=== PATIENT | female | born 1955 | race Caucasian/White ===

== ENCOUNTER → 2020-04-12 13:04 | Outpatient (BNVA) | payer OTHER, SELFPAY | PROVIDERS: Visit Provider Specialist | DX: G25.0 Essential tremor (principal); G24.3 Spasmodic torticollis; Z87.891 Personal history of nicotine dependence | CPT/HCPCS: 99203 ==

== ENCOUNTER 2022-01-07 10:35 | Emergency (ER) | payer OTHER, MEDICARE, SELFPAY ==
[2022-01-07 11:09] VITALS: BP 144/89; PULSE 75; RESP 16; TEMP 36.6; O2SAT 98; BMI 47.0
--- NOTE | 2022-01-07 11:28 | XR_ITS ---
WS: [id number] LEFT FOOT: 3 VIEW(S) TECHNIQUE: AP, oblique and lateral. HISTORY: pain and swelling of midfoot-Great toe MP Joint COMPARISON: None available. No acute fracture or dislocation. Very minimal joint space narrowing involving the first metatarsopha langeal joint. No erosions. No soft tissue mass. Normal tarsal/metatarsal alignment. Large calcaneal spur measures 15 mm. XR/XR foot LT min 3V* [id number] IMPRESSION: 1. Minimal degenerative changes at the first metatarsophalangeal joint. 2. No erosions. 3. Large calcaneal spur.
--- NOTE | 2022-01-07 11:32 | ED_ITS ---
HPI - Extremity Problem General: Chief complaint: Extremity Problem,Nontraumatic Stated complaint: Left foot pain Time Seen by Provider: 01/07/22 11:19 History of Present Illness: Patient is a 66-year-old female who comes to the ED with left foot pain. Symptoms started approximately 2 days ago. She describes having some pain, swelling and redness at the base of her great toe of left foot. Pain is rated a 10 out of 10. Denies any injury or trauma to cause pain. She states that the foot is very sensitive to touch and she had to sleep with her leg outside of the sheets because even the javan of the sheet on her bed was painful. Denies any past history of gout or any past similar pain in foot. Associated symptoms: Deny chest pain, fever(s) or rash Review of Systems Const: Denies: fever(s), chills or fatigue Eyes: Denies: change in vision or eye discomfort ENMT: Denies: throat pain, odynophagia, nasal discharge or nasal congestion Card: Denies: chest pain, palpitations, edema, swelling of feet/ankles, dyspnea on exertion or orthopnea Resp: Denies: dyspnea, productive cough or non-productive cough GI: Denies: abdominal pain, nausea, vomiting, diarrhea, constipation or hematochezia : Denies: flank pain, dysuria or hematuria Musc: Reports: extremity pain (left foot-base of great toe), extremity swelling (left foot-base of great toe) and joint redness (Left foot-great toe metatarsal phalangeal joint); Denies: neck pain or back pain Skin/Breast: Denies: rash or new lesions Neuro: Denies: headache(s) PFSH ED PFSH: Surgical History No pertinent past surgical history Family History Father Dementia Denies family history of Diabetes Bleeding disorder Cancer Social History Smoking and tobacco status: former smoker Physical Exam Const: COMMON NORMALS: no acute distress, patient oriented x3 and alert GENERAL APPEARANCE: cooperative and comfortable NUTRITIONAL APPEARANCE: obese HENMT: COMMON NORMALS: normocephalic HEAD & SCALP: normocephalic MOUTH: Normal oral and palatal mucosa present THROAT: posterior oropharynx normal and uvula midline Neck/C-Spine: COMMON NORMALS: supple GENERAL: Yes normal visual inspection Resp: COMMON NORMALS: normal respiratory effort, No retractions, No use of accessory muscles and clear to auscultation bilaterally AUSCULTATION: clear to auscultation bilaterally Cardio: COMMON NORMALS: regular rate, regular rhythm, S1 normal heart sound present, S2 normal heart sound present, No gallops present (Cardio), No clicks present (Cardio), No murmurs present (Cardio) and Peripheral pulses 2+ throughout RATE: regular rate RHYTHM: regular rhythm HEART SOUNDS: S1 normal heart sound present and S2 normal heart sound present PERIPHERAL PU LSES: Peripheral pulses 2+ throughout GI: COMMON NORMALS: Normal to inspection, nondistended, normoactive bowel sounds present, Soft to palpation, non-tender and no masses PALPATION: Yes Soft to palpation : COMMON NORMALS: Yes no CVA tenderness BLADDER/KIDNEY EXAM: Yes no CVA tenderness Back/Pelvis: COMMON NORMALS: no CVA tenderness Extremity: LEFT LOWER EXTREMITY: Yes foot & digits Left foot and digits: Yes inspection (Swelling and erythema at first meta tarsal/phalangeal joint), Yes palpation (Tenderness over first metatarsal/phalangeal joint), Yes ROM (Great toe limited due to pain.) and Yes neurovascular exam (Intact.) Neuro: COMMON NORMALS: patient oriented x3 and moves all extremities SENSORIUM/ORIENTATION: Yes alert Skin: GENERAL SKIN EXAM: dry skin Course Vital Signs: Vital signs: Vital Signs Temperature 97.9 F 01/07/22 11:09 Pulse Rate 74 01/07/22 13:20 Respiratory Rate 16 01/07/22 13:20 Blood Pressure 144/89 01/07/22 11:09 Pulse Oximetry 95 01/07/22 13:20 MDM - Extremity (Nontraumatic) Medical Decision Making Patient is a 66-year-old female who comes to the ED with left foot pain. Patient has erythema, warmth and swelling of the metatarsal?phalangeal joint of the great toe on left foot. Denies any injury or trauma. Symptoms started approximately 2 days ago. X-ray of left foot shows minimal degenerative changes at the first metatarsophalangeal joint. Given patient's history and clinical appearance she is diagnosed with gout and given a dose of colchicine here in the ED. She was then discharged home with a prescription for second dose of colchicine, prednisone and hydrocodone for acute pain. Return to ED precautions given. Follow-up with PCP in 5 to 7 days for reevaluation. Patient understood and agree with plan. Lab Data Radiology Impressions Foot X-Ray 01/07/22 11:28 IMPRESSION: 1. Minimal degenerative changes at the first metatarsophalangeal joint. 2. No erosions. 3. Large calcaneal spur. Discharge Plan Discharge Patient Disposition: Home Clinical Impression: Gout Qualifiers: Gout site: toe Gout etiology: idiopathic Chronicity: acute Laterality: left Qualified Code(s): M10.072 - Idiopathic gout, left ankle and foot Condition: Stable Prescriptions: New prednisone 20 mg tablet 20 mg PO BID 7 Days Qty: 14 0RF colchicine 0.6 mg capsule 0.6 mg PO ONCE Qty: 1 0RF Rx Instructions: Take next dose approximately 1 hour after your initial dose given in the ED. No Action albuterol sulfate 90 mcg/actuation aerosol powdr breath activated 2 inh INHALATION Q6H PRN0RF aspirin [Adult Low Dose Aspirin] 81 mg tablet,delayed release (DR/EC) 81 mg PO DAILY 0RF atorvastatin 80 mg tablet 80 mg PO DAILY 0RF vitamin d 2,000 units tablet 2,000 units PO DAILY 0RF conjugated estrogens 0.625 mg/gram cream 0.625 mg VAGINAL .three times weekly 0RF Rx Instructions: off 5 days; repeat cycle metoprolol succinate 50 mg tablet extended release 24 hr See Rx Instructions PO DAILY 0RF Rx Instructions: one half tab PO daily; Discharge Orders: Discharge ED (Routine); Ordered 01/07/22 Ordered By: Zachary Go Discharge Diet: Regular Discharge Activity: Increase activity as tolerated Patient Instructions: Gout (ED) Activity Restrictions/Additional Instructions: Follow-up with medical provider as directed in the next 5 to 7 days for reevaluation. Take medications as prescribed. Return to the ER or your medical provider if condition worsens. Please read and understand discharge instructions. Thank you for choosing [facility] for your healthcare needs today. Please realize this is an emergency room and that we are providing you with a medical screening exam and this may not be complete and all inclusive of all the testing and or work up that you may need to determine your ailment or severity of your illness. It is very important that you follow up as instructed or that you return to the Emergency Department should you have concerns or if your condition changes or worsens in any way. Coding Level of Care Code ED Batting Machine Operator for Ingris Rodriguez Exam Comprehensive
[2022-01-07] MEDS: HYDROcodone-acetaminophen 7.5-325 mg Tablet 1 TAB PO (12:14)
[2022-01-07] MEDS: colchicine 0.6 mg Tablet 1.2 MG PO (13:14)
[2022-01-07 13:20] VITALS: PULSE 74; RESP 16; O2SAT 95
== END 2022-01-07 13:24 | disposition home or self-care (01) ==
PROVIDERS: Emergency Provider Physician Assistant
DX: M10.072 Idiopathic gout, left ankle and foot (principal); Z79.82 Long term (current) use of aspirin; Z87.891 Personal history of nicotine dependence; X58.XXXA Exposure to other specified factors, initial encounter
CPT/HCPCS: 73630; 99283

== ENCOUNTER 2022-09-22 10:28 | Emergency (ER) | payer OTHER, SELFPAY ==
[2022-09-22 10:33] VITALS: BMI 47.0
[2022-09-22 10:36] VITALS: BP 141/84; PULSE 63; RESP 18; TEMP 36.4; O2SAT 100
--- NOTE | 2022-09-22 11:05 | MRR_ITS ---
PROCEDURE INFORMATION: Exam: MR Lumbar Spine Without Contrast Exam date and time: 09/22/2022 1:48 PM Age: 66 years old Clinical indication: Pain; Lumbago with sciatica; Bilateral; Additional info: Left lumbar radiculopathy TECHNIQUE: Imaging protocol: Magnetic resonance imaging of the lumbar spine without contrast. COMPARISON: No relevant prior studies available. FINDINGS: Bones/joints: Lumbar spine alignment is physiologic. No compression fractures are noted. No focal vertebral lesions are seen. Spinal cord: The conus medullaris is normal in position and morphology. T12-L1: Mild disc degeneration and minimal disc bulge. No spinal canal or neural foraminal stenosis. L1-L2: Normal disc height. No disc bulge or protrusion. No spinal canal or neural foraminal stenosis. L2-L3: Normal disc height. No disc bulge or disc protrusion. Mild degenerative facet joint changes. No spinal canal or neural foraminal stenosis. L3-L4: Normal disc height. No disc bulge or protrusion. Mild degenerative facet joint changes. No spinal canal or neural foraminal stenosis. L4-L5: Normal disc height. 3.5 mm left paracentral disc protrusion, impinging upon the left traversing L5 nerve. This is seen on series 601, image 22. No central spinal canal stenosis. Neural foramina are patent. L5-S1: Normal disc height. No disc bulge or protrusion. No spinal canal or neural foraminal stenosis. Soft tissues: Paraspinous soft tissues are unremarkable. MR/MR lumbar spine wo con* [id number] IMPRESSION: 1. L4-L5 level demonstrates a 3.5 mm left paracentral disc protrusion, which impinges upon the left traversing L5 nerve. 2. There are no additional lumbar disc protrusions identified. Minimal spondylosis is noted at several levels, as detailed above.
[2022-09-22 11:33] VITALS: RESP 18
[2022-09-22] MEDS: HYDROmorphone 1 mg/mL INJ 1 mL 0.5 MG IVP ×2 (11:33→13:44)
[2022-09-22] MEDS: ondansetron 2 mg/ML SDV 2 mL 4 MG IVP (11:34)
[2022-09-22] MEDS: ketorolac 30 mg/mL INJ 15 MG IVP (11:34)
[2022-09-22 11:39] LABS: Basophils # 0.1 10^3/uL (0.0-0.1); Basophils % 0.6 %; Eosinophils # 0.3 10^3/uL (0.0-0.8); Hematocrit 41.3 % (37.0-47.0); Lymphocytes # 1.9 10^3/uL (0.8-4.8); Lymphocytes % 16.6 %; Mean Corpuscular HGB Conc 31.5 g/dL (30.0-36.0); Mean Corpuscular Hemoglobin 29.1 pg (28.0-34.0); Mean Corpuscular Volume 92.6 fl (81-99); Mean Platelet Volume 9.1 fL (7.4-10.4); Monocytes # 0.8 10^3/uL (0.2-0.9); Monocytes % 6.8 %; Neutrophils # 8.15 10^3/uL (1.8-7.7); Neutrophils % 72.6 %; Nucleated Red Blood Cells % 0 %; Platelet Count 339 10^3/cmm (130-400); Red Blood Count 4.46 10^6/uL (4.1-5.3); Red Cell Distribution Width 13.4 % (12.1-15.1); White Blood Count 11.2 10^3/uL (4.0-10.0)
[2022-09-22 11:42] VITALS: BP 144/76; O2SAT 90
[2022-09-22 11:59] LABS: Alanine Aminotransferase 12 U/L (0-33); Albumin Level 3.5 g/dL (3.5-5.2); Alkaline Phosphatase 96 U/L (35-105); Anion Gap 12.8 (5-19); Aspartate Amino Transferase 10 U/L (0-32); Blood Urea Nitrogen 22 mg/dL (8-23); Calcium 9.8 mg/dL (8.5-10.5); Carbon Dioxide 26 mmol/L (22-29); Chloride 103 mmol/L (98-107); Globulin 3.1 g/dL (1.3-4.6); Glomerular Filtration Rate 62.8 mL/min (90-130); Glucose 106 mg/dL (65-115); Osmolality Calculated 290 mOsm/kg (285-295); Potassium 3.8 mmol/L (3.5-5.1); Sodium 138 mmol/L (136-145); Total Bilirubin 0.2 mg/dL (0.15-1.2); Total Protein 6.6 g/dL (6.6-8.7)
--- NOTE | 2022-09-22 12:39 | W.ED.EXTPRO ---
HPI - Extremity Problem General: Chief complaint: Extremity Problem,Nontraumatic Stated complaint: Left hip and leg pain Time Seen by Provider: 09/22/22 10:46 History of Present Illness: This patient is a 66-year-old presenting to the ER with severe left sided back pain radiating to her left leg. This has been ongoing for approximately 3 weeks. It is to the point where she is unable to stand straight and ambulate at all. She gets around her house bent over at the waist and leaning on furniture. [place] and they did some sort of injection for pain. She does not think it was a steroid injection but she is not really sure. Either way it seems to make her symptoms worse. She has been having severe radiating pain down the left leg. The worst of the pain is in her left buttock. The pain and numbness radiate down the outside of her leg into her foot. She is not sure if she has weakness or if it is just painful with movements. She denies any prior back surgeries or back problems. No history of sciatica. No incontinence or retention of bladder or bowel. She is in obvious discomfort. Nothing relieves the pain however it does worsen with any effort to move. Associated symptoms: Deny chest pain, fever(s) or rash Review of Systems Const: Denies: fever(s), chills, fatigue or malaise Eyes: Denies: change in vision ENMT: Denies: odynophagia Card: Denies: chest pain or swelling of feet/ankles Resp: Denies: dyspnea, productive cough or non-productive cough GI: Denies: abdominal pain, nausea or vomiting : Denies: flank pain or difficulty voiding Musc: Reports: back pain and extremity pain Skin/Breast: Denies: rash Neuro: Reports: numbness in extremities, weakness in extremities and difficulty walking Steven/Lymph: Denies: easy bruising or easy bleeding PFSH ED PFSH: Medical History Elevated cholesterol Hypertension Surgical History No pertinent past surgical history Family History Father Dementia Denies family history of Diabetes Bleeding disorder Cancer Social History Smoking and tobacco status: former smoker Physical Exam Const: COMMON NORMALS: patient oriented x3, no limitations and alert GENERAL APPEARANCE: cooperative and comfortable HENMT: HEAD & SCALP: normal to inspection FACE & SINUS: normal facial exam Eye: GENERAL EYE: appearance normal, both eyes and all related structures Neck/C-Spine: COMMON NORMALS: supple, no meningeal signs and no JVD Chest: COMMONS NORMALS: normal inspection of the chest Resp: COMMON NORMALS: normal respiratory effort, No use of accessory muscles and clear to auscultation bilaterally AUSCULTATION: clear to auscultation bilaterally Cardio: COMMON NORMALS: no JVD, regular rate, regular rhythm and No murmurs present (Cardio) RATE: regular rate RHYTHM: regular rhythm GI: COMMON NORMALS: Normal to inspection, nondistended, normoactive bowel sounds present, Soft to palpation and non-tender INSPECTION: Yes normal to inspection AUSCULTATION: Yes normoactive bowel sounds PALPATION: Yes Soft to palpation Back/Pelvis: COMMON NORMALS: thoracic and lumbar spine normal to inspection LUMBAR SPINE/LOWER BACK: Yes ROM limited, Yes paraspinal muscle tenderness, Yes straight leg raise positive right and Yes straight leg raise positive left Extremity: COMMON NORMALS: normal to inspection Neuro: COMMON NORMALS: patient oriented x3, moves all extremities and no focal motor deficits SENSORIUM/ORIENTATION: Yes alert MENINGEAL SIGNS: Yes no meningeal signs SENSORY EXAM: Yes extremities (Decreased sensation on the lateral thigh, lateral lower leg, lateral foot a) OTHER: Limited motor exam of the left leg due to pain. She is lying on the stretcher supine with her left leg bent and her heel pressing into the bed. She says this is the most comfortable position. Any slight movement of the leg to try a straight leg raise causes severe pain in the leg and back. She had a positive crossed straight leg raise. Psych: COMMON NORMALS: mental status grossly normal, cooperative and normal affect Skin: COMMON NORMALS: no rashes or lesions noted and turgor normal GENERAL SKIN EXAM: no rashes or lesions noted and turgor normal Course Vital Signs: Vital signs: Vital Signs Temperature 97.5 F L 09/22/22 10:36 Pulse Rate 63 09/22/22 10:36 Respiratory Rate 14 09/22/22 13:44 Blood Pressure 144/76 09/22/22 11:42 Pulse Oximetry 90 09/22/22 11:42 Oxygen Delivery Me thod 09/22/22 10:36 MDM - Extremity (Nontraumatic) Medical Decision Making Patient has significant pain down the left leg. She has numbness in the L5 distribution. She has normal strength with the limitations of pain. No bladder or bowel incontinence. She was given pain medication and steroids. MRI was done. This showed a disc protrusion on the left impinging on the L5 nerve root. She was given spine follow-up, Medrol, oxycodone. Lab Data : 09/22/22 11:30 09/22/22 11:30 Radiology Impressions Lumbar Spine MRI 09/22/22 11:05 IMPRESSION: 1. L4-L5 level demonstrates a 3.5 mm left paracentral disc protrusion, which impinges upon the left traversing L5 nerve. 2. There are no additional lumbar disc protrusions identified. Minimal spondylosis is noted at several levels, as detailed above. Laboratory Results WBC 11.2 10^3/uL (4.0-10.0) H 09/22/22 11:30 RBC 4.46 10^6/uL (4.1-5.3) 09/22/22 11:30 Hgb 13.0 g/dL (11.5-15.3) 09/22/22 11:30 Hct 41.3 % (37.0-47.0) 09/22/22 11:30 MCV 92.6 fl (81-99) 09/22/22 11:30 MCH 29.1 pg (28.0-34.0) 09/22/22 11:30 MCHC 31.5 g/dL (30.0-36.0) 09/22/22 11:30 RDW 13.4 % (12.1-15.1) 09/22/22 11:30 Plt Count 339 10^3/cmm (130-400) 09/22/22 11:30 MPV 9.1 fL (7.4-10.4) 09/22/22 11:30 Neut % (Auto) 72.6 % 09/22/22 11:30 Lymph % (Auto) 16.6 % 09/22/22 11:30 Hale % (Auto) 6.8 % 09/22/22 11:30 Eos % (Auto) 3.0 % 09/22/22 11:30 Baso % (Auto) 0.6 % 09/22/22 11:30 Neut # (Auto) 8.15 10^3/uL (1.8-7.7) H 09/22/22 11:30 Lymph # (Auto) 1.9 10^3/uL (0.8-4.8) 09/22/22 11:30 Hale # (Auto) 0.8 10^3/uL (0.2-0.9) 09/22/22 11:30 Eos # (Auto) 0.3 10^3/uL (0.0-0.8) 09/22/22 11:30 Baso # (Auto) 0.1 10^3/uL (0.0-0.1) 09/22/22 11:30 Nucleated RBC % (auto) 0 % 09/22/22 11:30 Nucleated RBCs # 0.0 /100WBC 09/22/22 11:30 Sodium 138 mmol/L (136-145) 09/22/22 11:30 Potassium 3.8 mmol/L (3.5-5.1) 09/22/22 11:30 Chloride 103 mmol/L (98-107) 09/22/22 11:30 Carbon Dioxide 26 mmol/L (22-29) 09/22/22 11:30 Anion Gap 12.8 (5-19) 09/22/22 11:30 BUN 22 mg/dL (8-23) 09/22/22 11:30 Creatinine 0.9 mg/dL (0.5-0.9) 09/22/22 11:30 GFR Calculation 62.8 mL/min (90-130) L 09/22/22 11:30 Glucose 106 mg/dL (65-115) 09/22/22 11:30 Calculated Osmolality 290 mOsm/kg (285-295) 09/22/22 11:30 Calcium 9.8 mg/dL (8.5-10.5) 09/22/22 11:30 Total Bilirubin 0.2 mg/dL (0.15-1.2) 09/22/22 11:30 AST 10 U/L (0-32) 09/22/22 11:30 ALT 12 U/L (0-33) 09/22/22 11:30 Alkaline Phosphatase 96 U/L (35-105) 09/22/22 11:30 Total Protein 6.6 g/dL (6.6-8.7) 09/22/22 11:30 Albumin 3.5 g/dL (3.5-5.2) 09/22/22 11:30 Globulin 3.1 g/dL (1.3-4.6) 09/22/22 11:30 Discharge Plan Discharge Patient Disposition: Home Clinical Impression: Acute left lumbar radiculopathy, Acute herniated disc Condition: Stable Prescriptions: New oxycodone 5 mg tablet 5 mg PO QID PRN (Reason: pain) Qty: 20 0RF Medrol (Robe) 4 mg tablets,dose pack See Rx Instructions .ROUTE .COMPLEX Qty: 21 0RF Rx Instructions: One pack, take orally as directed on package insert No Action albuterol sulfate 90 mcg/actuation aerosol powdr breath activated 2 inh INHALATION Q6H PRN aspirin [Adult Low Dose Aspirin] 81 mg tablet,delayed release (DR/EC) 81 mg PO DAILY atorvastatin 80 mg tablet 80 mg PO DAILY vitamin d 2,000 units tablet 2,000 units PO DAILY conjugated estrogens 0.625 mg/gram cream 0.625 mg VAGINAL .three times weekly Rx Instructions: off 5 days; repeat cycle metoprolol succinate 50 mg tablet extended release 24 hr See Rx Instructions PO DAILY Rx Instructions: one half tab PO daily; colchicine 0.6 mg capsule 0.6 mg PO ONCE Qty: 1 0RF Rx Instructions: Take next dose approximately 1 hour after your initial dose given in the ED. Discharge Orders: Discharge ED (Routine); Ordered 09/22/22 Ordered By: Jodi Cordova Referrals: Jaquan Tejeda DO [Physician] - Discharge Diet: Usual diet Discharge Activity: Increase activity as tolerated Patient Instructions: Opioid Safety, Pain Management Activity Restrictions/Additional Instructions: Use the medrol dose pack as instructed. Do not take ibuprofen or naprosyn while on this medicine. You can take tylenol with this medicine. Use the oxycodone as needed for pain. Return to the ED if worsening symptoms, loss of bladder or bowel control, fever or other concerning symptoms. Coding Level of Care Code ED Digital Advertising Analyst for [employer] Fwd Exam Comprehensive
[2022-09-22 13:44] VITALS: RESP 14
[2022-09-22] MEDS: dexamethasone 10 mg/mL INJ IVP (16:12)
== END 2022-09-22 16:14 | disposition home or self-care (01) ==
PROVIDERS: Emergency Provider Emergency Medicine
DX: M51.16 Intervertebral disc disorders with radiculopathy, lumbar region (principal)
CPT/HCPCS: 72148; 80053; 85025; 96374; 96375; 96376; 99285; J1100; J1170; J1885; J2405

== ENCOUNTER → 2023-01-15 09:45 | Outpatient (BNVA) | payer OTHER, SELFPAY | PROVIDERS: Visit Provider Anesthesiology Pain Medicine | DX: M47.816 Spondylosis without myelopathy or radiculopathy, lumbar region (principal); M51.16 Intervertebral disc disorders with radiculopathy, lumbar region; M79.605 Pain in left leg | CPT/HCPCS: 99205 ==

== ENCOUNTER → 2023-02-03 14:05 | Outpatient (BNVA) | payer OTHER, SELFPAY | PROVIDERS: Visit Provider Anesthesiology Pain Medicine | DX: M54.16 Radiculopathy, lumbar region (principal) | CPT/HCPCS: 64483; 64484; J1100; J3490 ==

== ENCOUNTER → 2023-02-17 13:05 | Outpatient (BNVA) | payer OTHER, SELFPAY | PROVIDERS: Visit Provider Anesthesiology Pain Medicine | DX: M54.16 Radiculopathy, lumbar region (principal) | CPT/HCPCS: 64483; 64484; J1100; J3490 ==

== ENCOUNTER → 2023-03-12 10:07 | Outpatient (BNVA) | payer OTHER, SELFPAY | PROVIDERS: Visit Provider Anesthesiology Pain Medicine | DX: M47.816 Spondylosis without myelopathy or radiculopathy, lumbar region (principal); M51.16 Intervertebral disc disorders with radiculopathy, lumbar region | CPT/HCPCS: 99214 ==

== ENCOUNTER → 2023-03-14 14:16 | Outpatient (BNVA) | payer OTHER, SELFPAY | PROVIDERS: Referring Provider Anesthesiology Pain Medicine; Visit Provider Orthopaedic Surgery | DX: M48.062 Spinal stenosis, lumbar region with neurogenic claudication (principal) | CPT/HCPCS: 72110; 99204 ==

== ENCOUNTER 2023-04-04 07:20 | Day surgery (SDC) | payer OTHER, SELFPAY ==
--- NOTE | 2023-04-01 09:03 | ECG_ITS ---
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 Measurements Intervals Nicholson Rate: 60 P: -15 WY: 156 QRS: -24 QRSD: 98 T: -9 QT: 405 QTc: 407 Interpretive Statements SINUS RHYTHM POSSIBLE ANTERIOR MYOCARDIAL INFARCTION , OF INDETERMINATE AGE [30 ms Q WAVE IN V3/V4, OR R < 0.2 mV IN V4] No previous ECG available for comparison Electronically Signed On 04-02-2023 0:29:21 CDT by Carl Brandt M.D. [email or web address] [email or web address]/[email or web address]/[id number]
[2023-04-01 09:12] VITALS: BMI 45.0
[2023-04-01 10:01] LABS: Anion Gap 15.1 (5-19); Blood Urea Nitrogen 18 mg/dL (8-23); Calcium 10.4 mg/dL (8.5-10.5); Carbon Dioxide 28 mmol/L (22-29); Chloride 103 mmol/L (98-107); Glomerular Filtration Rate 83.7 mL/min (90-130); Glucose 110 mg/dL (65-115); Osmolality Calculated 297 mOsm/kg (285-295); Potassium 4.1 mmol/L (3.5-5.1); Sodium 142 mmol/L (136-145)
--- NOTE | 2023-04-01 10:08 | P.ANESASSM_ITS ---
Pre-Anesthetic Assessment Height/Weight: Height 1.68 m Weight 126.552 kg Operation Date: 04/04/23 07:00 Proposed Procedures p Lumbar Spine Decompression:Left side L4/5 74137, M48.062(Left) - Jaquan Tejeda DO Familial anesthetic complications: None Social No alcohol and No tobacco Exam alert, oriented x 3, clear to auscultation bilaterally and regular rate & rhythm Airway Mallampati: Class III Dentition: other (missing) Pulmonary None reported CV/HEM Coronary Artery Disease (stent), Hypertension and Myocardial Infarction (7 years ago) None reported Hepatic None reported GI Gastroesophageal Reflux Disease Metabolic Diabetes Mellitus and Morbid Obesity Musc/skel Lower Back Pain Neuropsych None reported Anesthetic Plan ASA status: 3 Anesthesia: General Risk of > 500 ml blood loss (7ml/kg in children): No Medications/Allergies Home Medications Medication Instructions Recorded Confirmed Last Taken Type albuterol sulfate 90 mcg/actuation 2 inh inhalation Q6H PRN Shortness 04/12/20 04/01/23 Unknown History breath activated powder inhaler Of Breath aspirin 81 mg tablet,delayed 81 mg PO DAILY 04/12/20 04/01/23 03/27/23 History release (Adult Low Dose Aspirin) atorvastatin 80 mg tablet 80 mg PO DAILY 04/12/20 04/01/23 Unknown History metoprolol succinate 50 mg See Rx Instructions PO DAILY 04/12/20 04/01/23 Unk nown History tablet,extended release 24 hr vitamin d 2,000 units PO DAILY 04/12/20 03/14/23 Unknown History calcium carbonate 600 mg-vitamin tab PO 1XD 01/15/23 03/14/23 Unknown History D3 10 mcg (400 unit) chewable tablet (Calcium 600 with Vitamin D3) cholecalciferol (vitamin D3) 50 50 mcg PO DAILY 01/15/23 03/14/23 Unknown History mcg (2,000 unit) capsule lisinopril 20 mg tablet 20 mg PO DAILY 01/15/23 04/01/23 Unknown History metformin 1,000 mg tablet 1,000 mg PO BID 01/15/23 04/01/23 Unknown History nitroglycerin 0.4 mg sublingual 0.4 mg sublingual Q5M PRN Chest 01/15/23 04/01/23 Unknown History tablet Pain pantoprazole 40 mg tablet,delayed 40 mg PO DAILY 01/15/23 04/01/23 Unknown History release Allergies Allergy/AdvReac Type Severity Reaction Status Date / Time No Known Allergies Allergy Verified 03/14/23 14:32 [facility] Anesthesia Medical History Elevated cholesterol Hypertension Surgical History No pertinent past surgical history Family History Father Dementia Denies family history of Diabetes Bleeding disorder Cancer Social History Smoking and tobacco status: former smoker Data Anesthesia 04/01/23 09:35 BMP 04/01/23 09:35 Sodium 142 Potassium 4.1 Chloride 103 Carbon Dioxide 28 BUN 18 Creatinine 0.7 Glucose 110 Calcium 10.4 Cardiac Studies: No Data to Display
[2023-04-04] VITALS (12 sets, daily range): BP systolic 123–138; BP diastolic 67–105; PULSE 75–88; RESP 12–18; TEMP 36.3–36.9; O2SAT 91–99
[2023-04-04] MEDS: sodium chloride 0.9% 1,000 ML 30 ML IV (07:59)
[2023-04-04 08:06] LABS: Glucose Point of Care 127 mg/dL (70-110)
--- NOTE | 2023-04-04 08:13 | W.PM.OPSUD ---
Surgery/Procedure H&P Update DATE OF PROCEDURE: April 04, 2023 DATE H&P PERFORMED: 03/14/23 H&P UPDATE INFORMATION: I have reviewed H&P completed within last 30 days, I have examined patient prior to procedure and No changes to prior documentation PREOP DIAGNOSIS: Lumbar stenosis with radiculopathy PLANNED PROCEDURE: Operation Date: 04/04/23 09:00 Proposed Procedures p Lumbar Spine Decompression:Left side L4/5 77095, M48.062(Left) - Jaquan Tejeda DO
[2023-04-04] MEDS: ceFAZolin 2,000 MG in sodium chloride 0.9% (plus) 50 ML 100 MG IV (08:30)
[2023-04-04] MEDS: lidocaine-epi 1% 20 mL INJ INJECTION (08:57)
--- NOTE | 2023-04-04 09:36 | PM.OP ---
Operative Report Date of procedure: April 04, 2023 Pre-op diagnosis: Preop Diagnosis Lumbar stenosis with radiculopathy Post-op diagnosis: same Procedure done: L4-5 laminectomy with partial facetectomy Surgeon: Jaquan Tejeda Shield Cleaner: None Estimated blood loss (mL): 5 Procedure: L4-5 laminectomy with partial facetectomy Patient is brought to the operative suite. After undergoing anesthesia they are placed in the prone position. All areas of impingement are well padded. Patient is then prepped and draped in the normal sterile fashion. A skin incision is made over the L4-5 level. This is confirmed under c-arm guidance. A series of dilators are passed and the tubular retractor is docked on the L 5 lamina. A bovie is used to clear the soft tissue off the lamina and the L 4/ 5 facet joint. A high speed noris is then used to perform the laminectomy and take down the medial aspect of the L 4/5 facet joint. A kerrison rongeure was then used to take down the remaining lamina and smooth the edge of the laminectomy up to the point where the ligamentum flavum attaches. Attention was then brought to the medial aspect of the facet joint. The remaining medial aspect of the superior and inferior aspect of the facet joint were taken down with the kerrison from the pedicle of L4 to L 5. The facet joint had significant hypertrophy. Attention was then brought to the Ligamentum Flavum. The ligament was taken down from the lamina of L4 to L5 and out medially to the remaining facet joint. The ligament was thick. The dura was then exposed. The dura was in good repair. The L4 nerve was then traced with a curette out the L4/5 foramen and found to be adequately decompressed. The L5 nerve was traced with a curette around the L5 pedicle. The lateral recess was opened with a kerrison helping to further decompress the L5 nerve. Wound is then irrigated copiously with saline and surgiflo is used to stop any bleeding. The tubular retractor is removed and the wound is closed with vicryl and monocryl suture. Glue is then used to protect the wound. A sterile dressing is then placed. Patient was then placed in the supine position and transferred to the PACU in stable condition.
--- NOTE | 2023-04-04 09:43 | PC.NURSE ---
Pt arrived to PACU at 0940, oral airway in place, O2 at 6L/min via simple mask. Dressing to lower back C/D/I. Pt awake at 0943, oral airway removed, pt tolerated well. Able to move all extremities.
[2023-04-04] MEDS: fentaNYL 50 mcg/mL INJ 2mL IVP (09:52)
[2023-04-04] MEDS: HYDROcodone-acetaminophen 5-325 mg Tablet 2 TAB PO (10:32)
--- NOTE | 2023-04-04 10:41 | XR_ITS ---
WS: [id number] XR lumbar spine 2-3V* [id number] REASON FOR EXAM: OR PICS FINDINGS: Surgical device overlying the left L4-L5 disc space. XR/XR lumbar spine 2-3V* [id number] IMPRESSION: Intraoperative lumbar localization as above.
--- NOTE | 2023-04-04 12:23 | ANE.PACU2 ---
Inpatient post-anesthesia follow up: Airway intact: Yes Vital signs: Temperature 97.7 F Pulse Rate 85 Respiratory Rate 18 Blood Pressure 130/79 Pulse Oximetry 93 Oxygen Delivery Me thod Room Air Oxygen Flow Rate 6 Fraction of Inspir ed Oxygen Hydration adequate: Yes Nausea and vomiting: No Pain level: 1 Mental status: Baseline
== END 2023-04-04 11:25 | disposition home or self-care (01) ==
PROVIDERS: Anesthesiology; PCP Nurse Practitioner Family; Visit Provider Orthopaedic Surgery
PROC: (CPT 63005; principal; 2023-04-04 08:50)
DX: M48.062 Spinal stenosis, lumbar region with neurogenic claudication (principal); I10 Essential (primary) hypertension; I25.10 Atherosclerotic heart disease of native coronary artery without angina pectoris; I25.2 Old myocardial infarction; K21.9 Gastro-esophageal reflux disease without esophagitis; E66.01 Morbid (severe) obesity due to excess calories; Z68.42 Body mass index [BMI] 45.0-49.9, adult; Z79.84 Long term (current) use of oral hypoglycemic drugs; Z79.82 Long term (current) use of aspirin; Z79.899 Other long term (current) drug therapy; Z87.891 Personal history of nicotine dependence; Z95.5 Presence of coronary angioplasty implant and graft
CPT/HCPCS: 63047; 36415; 36416; 72100; 76000; 80048; 82962; 93005; J0690; J1100; J2370; J2405; J2704; J2710; J3010; J3490; J7030

== ENCOUNTER → 2023-04-17 11:11 | Outpatient (BNVA) | payer OTHER, SELFPAY | PROVIDERS: PCP Nurse Practitioner Family; Visit Provider Physician Assistant | DX: Z98.890 Other specified postprocedural states (principal) | CPT/HCPCS: 99024 ==

== ENCOUNTER → 2023-05-29 13:15 | Outpatient (BNVA) | payer OTHER, SELFPAY | PROVIDERS: PCP Nurse Practitioner Family; Visit Provider Physician Assistant | DX: Z98.890 Other specified postprocedural states (principal) | CPT/HCPCS: 99024 ==

== ENCOUNTER → 2023-07-24 10:16 | Outpatient (BNVA) | payer OTHER, SELFPAY | PROVIDERS: PCP Nurse Practitioner Family; Visit Provider Orthopaedic Surgery | DX: M48.062 Spinal stenosis, lumbar region with neurogenic claudication (principal); Z98.890 Other specified postprocedural states | CPT/HCPCS: 72100; 99213 ==

== ENCOUNTER → 2023-10-21 11:12 | Outpatient (BNVA) | payer OTHER, SELFPAY | PROVIDERS: PCP Nurse Practitioner Family; Visit Provider Orthopaedic Surgery | DX: Z47.89 Encounter for other orthopedic aftercare (principal) | CPT/HCPCS: 99213 ==